=== PATIENT | male | born 1990 | race Caucasian/White ===

== ENCOUNTER 2017-03-21 14:59 | Emergency (ER) | payer OTHER ==
[~2017-03-21 14:59] MED LIST: ABILIFY5 MG PO; ALBUTEROL SULF8.5 GM IH; AMPHETAMINE SALT5 MG PO; ATARAX,VISTARIL25 MG PO; BENADRYL; BENZTROPINE MESY1 MG PO; BUSPAR15 MG PO; BUSPIRONE HCL15 MG PO; CELEXA20 MG PO; COGENTIN1 MG PO; CYMBALTA60 MG PO; FANAPT8 MG PO; GEODON40 MG PO; GEODON60 MG PO; HALDOL5 MG PO; KLONOPIN1 MG PO; LATUDA40 MG PO; LEXAPRO20 MG PO; PREDNISONE20 MG PO; SEROQUEL200 MG PO; THORAZINE50 MG; TRAZODONE HCL100 MG PO; TRAZODONE HCL300 MG PO; XANAX1 MG; ZIPRASIDONE HCL20 MG PO
== END 2017-03-21 15:16 | disposition left against medical advice (07) ==
LOC: EME 14:59
DX: Z00.8 Encounter for other general examination (principal); Z53.21 Procedure and treatment not carried out due to patient leaving prior to being seen by health care provider

== ENCOUNTER 2017-03-21 18:57 | Emergency (ER) | payer OTHER ==
[~2017-03-21] VITALS: Ht 167.6 cm; Wt 85.5 kg
[2017-03-21 22:33] LABS: EOSINOPHIL (%) 1.1 % (0-5); EOSINOPHIL COUNT 0.1 K/uL (0-0.3); HEMATOCRIT 43.1 % (38.0-50.0); IMMATURE GRANULOCYTE (%) 0.4 % (0.0-0.7); IMMATURE GRANULOCYTE COUNT 0.1 K/uL; INSTRUMENT ABS NEUTROPHIL CT 7.8 K/uL; LYMPHOCYTE COUNT 2.8 K/uL (1.0-2.8); MCH 30.5 PG (29.0-34.0); MCHC 34.8 G/DL (30.0-36.0); MCV 87.6 FL (86-99); MEAN PLAT.VOLUME 9.4 uM^3 (9.0-12.4); MONOCYTE (%) 8.8 % (3-12); MONOCYTE COUNT 1.1 K/uL (0-0.8); NEUTROPHIL (%) 65.8 % (45-76); NEUTROPHIL COUNT 7.8 K/uL (1.8-6.4); PLATELET COUNT 240 K/uL (156-360); RBC DIS.WIDTH-CV 11.5 % (11.8-14.6); RBC DIS.WIDTH-SD 37.1 % (39-53); RED BLOOD COUNT 4.92 M/uL (4.00-5.50); WHITE BLOOD COUNT 11.9 K/uL (4.1-10.2)
[2017-03-21 22:37] LABS: AMPHETAMINE NEGATIVE (500 ng/mL); BARBITURATES NEGATIVE (200 ng/mL); BENZODIAZEPINES NEGATIVE (150 ng/mL); COCAINE NEGATIVE (150 ng/mL); INTERNAL CONTROLS VALID? YES; METHADONE NEGATIVE (200 ng/mL); METHAMPHETAMINE NEGATIVE (500 ng/mL); OPIATES (MORPHINE) NEGATIVE (100 ng/mL); OXYCODONE NEGATIVE (100 ng/mL); PHENCYCLIDINE NEGATIVE (25 ng/mL); PROPOXYPHENE NEGATIVE (300 ng/mL); THC CANNABINOIDS NEGATIVE (50 ng/mL); TRICYCLIC ANTIDEPRESSANTS NEGATIVE (300 ng/mL)
[2017-03-21 22:41] LABS: CHLORIDE 108 mEq/L (99-109); POTASSIUM 3.7 mEq/L (3.7-5.4); SODIUM 141 mEq/L (136-147)
[2017-03-21 22:43] LABS: GLUCOSE 134 mg/dL (70-99)
[2017-03-21 22:44] LABS: ANION GAP 9 MEQ/L (2-14)
[2017-03-21 22:46] LABS: SERUM ETHYL ALCOHOL < 10 mg/dL
[2017-03-21 22:47] LABS: GFR ESTIMATE (CALCULATED) > 59 mL/min/
[2017-03-21 22:48] LABS: UREA NITROGEN (BUN) 16 mg/dL (9-23)
[2017-03-21 22:50] LABS: SALICYLATE < 5.0 MG/DL (15-30)
[2017-03-22 10:27] VITALS: BP 100/67
== END 2017-03-22 10:59 | disposition home or self-care (01) ==
LOC: EME 18:57
PROVIDERS: Emergency Medicine
DX: F31.5 Bipolar disorder, current episode depressed, severe, with psychotic features (principal); F60.2 Antisocial personality disorder; F17.200 Nicotine dependence, unspecified, uncomplicated
CPT/HCPCS: 80048; 85025; 90839; 99281; 99284; G0480; Q0177

== ENCOUNTER 2017-08-02 18:13 | Emergency (ER) | payer OTHER ==
[~2017-08-02] VITALS: Ht 170.2 cm; Wt 87.7 kg
[2017-08-02 18:56] LABS: HEMATOCRIT 46.9 % (38.0-50.0); MCHC 35.6 G/DL (30.0-36.0); MEAN PLAT.VOLUME 9.3 uM^3 (9.0-12.4); PLATELET COUNT 260 K/uL (156-360); RBC DIS.WIDTH-CV 11.6 % (11.8-14.6); RBC DIS.WIDTH-SD 36.7 % (39-53); RED BLOOD COUNT 5.39 M/uL (4.00-5.50); WHITE BLOOD COUNT 11.2 K/uL (4.1-10.2)
[2017-08-02 19:07] LABS: CHLORIDE 107 mEq/L (99-109); SODIUM 139 mEq/L (136-147)
[2017-08-02 19:08] LABS: GLUCOSE 114 mg/dL (70-99)
[2017-08-02 19:10] LABS: ANION GAP 10 MEQ/L (2-14)
[2017-08-02 19:11] LABS: SERUM ETHYL ALCOHOL < 10 mg/dL
[2017-08-02 19:12] LABS: GFR ESTIMATE (CALCULATED) > 59 mL/min/
[2017-08-02 19:13] LABS: UREA NITROGEN (BUN) 15 mg/dL (9-23)
[2017-08-02 20:11] LABS: AMPHETAMINE NEGATIVE (500 ng/mL); BARBITURATES NEGATIVE (200 ng/mL); BENZODIAZEPINES NEGATIVE (150 ng/mL); COCAINE NEGATIVE (150 ng/mL); INTERNAL CONTROLS VALID? YES; METHADONE NEGATIVE (200 ng/mL); METHAMPHETAMINE NEGATIVE (500 ng/mL); OPIATES (MORPHINE) NEGATIVE (100 ng/mL); OXYCODONE NEGATIVE (100 ng/mL); PHENCYCLIDINE NEGATIVE (25 ng/mL); PROPOXYPHENE NEGATIVE (300 ng/mL); THC CANNABINOIDS NEGATIVE (50 ng/mL); TRICYCLIC ANTIDEPRESSANTS NEGATIVE (300 ng/mL)
[2017-08-03] MEDS ORDERED: GEODON40 MG PO (09:53)
[2017-08-03 10:06] VITALS: BP 130/82
[2017-08-04] MEDS ORDERED: BUSPAR10 MG PO (17:34)
[2017-08-04] MEDS ORDERED: VISTARIL25 MG PO (17:35)
== END 2017-08-03 10:10 | disposition home or self-care (01) ==
LOC: EME 18:13
DX: F31.30 Bipolar disorder, current episode depressed, mild or moderate severity, unspecified (principal); R45.851 Suicidal ideations; F25.9 Schizoaffective disorder, unspecified; F90.1 Attention-deficit hyperactivity disorder, predominantly hyperactive type; F60.2 Antisocial personality disorder; F41.9 Anxiety disorder, unspecified; J45.909 Unspecified asthma, uncomplicated; F12.90 Cannabis use, unspecified, uncomplicated; Z59.0 Homelessness; F17.210 Nicotine dependence, cigarettes, uncomplicated
CPT/HCPCS: 80048; 85027; 90839; 99281; 99285; G0480

== ENCOUNTER 2017-08-04 08:27 | Inpatient (IN) | payer OTHER ==
[~2017-08-04] VITALS: Ht 172.7 cm; Wt 88.8 kg
[2017-08-04 09:32] LABS: EOSINOPHIL (%) 2.3 % (0-5); EOSINOPHIL COUNT 0.2 K/uL (0-0.3); HEMATOCRIT 45.2 % (38.0-50.0); IMMATURE GRANULOCYTE (%) 0.3 % (0.0-0.7); LYMPHOCYTE COUNT 2.4 K/uL (1.0-2.8); MCH 30.1 PG (29.0-34.0); MCHC 34.3 G/DL (30.0-36.0); MCV 87.8 FL (86-99); MEAN PLAT.VOLUME 8.9 uM^3 (9.0-12.4); MONOCYTE COUNT 0.6 K/uL (0-0.8); NEUTROPHIL (%) 67.8 % (45-76); PLATELET COUNT 227 K/uL (156-360); RBC DIS.WIDTH-CV 11.4 % (11.8-14.6); RED BLOOD COUNT 5.15 M/uL (4.00-5.50); WHITE BLOOD COUNT 10.3 K/uL (4.1-10.2)
[2017-08-04 09:41] LABS: CHLORIDE 106 mEq/L (99-109); POTASSIUM 4.3 mEq/L (3.7-5.4); SODIUM 140 mEq/L (136-147)
[2017-08-04 09:41] LABS: ADD MIUA? NO; BILIRUBIN NEGATIVE; BLOOD NEGATIVE; COLOR YELLOW ((YELLOW)); GLUCOSE (STRIP) NEGATIVE; KETONES NEGATIVE; LEUKOCYTES NEGATIVE; NITRITE NEGATIVE; PROTEIN (STRIP) NEGATIVE; UCUL ADDED? NO
[2017-08-04 09:43] LABS: GLUCOSE 104 mg/dL (70-99)
[2017-08-04 09:45] LABS: ANION GAP 9 MEQ/L (2-14); TOTAL BILIRUBIN 0.9 mg/dL (0.0-1.0)
[2017-08-04 09:46] LABS: SERUM ETHYL ALCOHOL < 10 mg/dL
[2017-08-04 09:47] LABS: GFR ESTIMATE (CALCULATED) > 59 mL/min/
[2017-08-04 09:48] LABS: ALKALINE PHOSPHATASE 56 IU/L (3-129)
[2017-08-04 09:49] LABS: UREA NITROGEN (BUN) 13 mg/dL (9-23)
[2017-08-04 09:51] LABS: SALICYLATE < 5.0 MG/DL (15-30)
[2017-08-04 09:54] LABS: AMPHETAMINE NEGATIVE (500 ng/mL); BARBITURATES NEGATIVE (200 ng/mL); BENZODIAZEPINES NEGATIVE (150 ng/mL); COCAINE NEGATIVE (150 ng/mL); METHADONE NEGATIVE (200 ng/mL); METHAMPHETAMINE NEGATIVE (500 ng/mL); OPIATES (MORPHINE) NEGATIVE (100 ng/mL); OXYCODONE NEGATIVE (100 ng/mL); PHENCYCLIDINE NEGATIVE (25 ng/mL); PROPOXYPHENE NEGATIVE (300 ng/mL); THC CANNABINOIDS NEGATIVE (50 ng/mL); TRICYCLIC ANTIDEPRESSANTS NEGATIVE (300 ng/mL)
[2017-08-04 09:55] LABS: INTERNAL CONTROLS VALID? YES
[2017-08-04] MEDS ORDERED: BUSPAR10 MG PO (17:34)
[2017-08-04] MEDS ORDERED: VISTARIL25 MG PO (17:35)
[2017-08-04 18:52] VITALS: BP 133/85
[2017-08-05 07:35] VITALS: BP 105/56
[2017-08-05 15:53] VITALS: BP 123/79
[2017-08-06 09:12] VITALS: BP 105/57
[2017-08-06 15:30] VITALS: BP 104/46
[2017-08-07] MEDS ORDERED: BUSPAR10 MG PO (09:24)
[2017-08-07] MEDS ORDERED: GEODON60 MG PO (09:24)
[2017-08-08] MEDS ORDERED: BUSPAR10 MG PO (19:30)
[2017-08-08] MEDS ORDERED: GEODON60 MG PO (19:30)
== END 2017-08-07 11:35 | disposition home or self-care (01) | DRG 885 ==
LOC: EME 08:27 → EDOF 17:12 → 1WEST 17:12 → ENRESERV 18:05 → 1WEST 18:34
PROVIDERS: Physician Assistant
DX: F31.9 Bipolar disorder, unspecified (principal); F25.0 Schizoaffective disorder, bipolar type; R45.851 Suicidal ideations; F90.9 Attention-deficit hyperactivity disorder, unspecified type; F17.200 Nicotine dependence, unspecified, uncomplicated; Z91.14 Patient's other noncompliance with medication regimen; Z59.0 Homelessness
CPT/HCPCS: 80053; 81003; 85025; 90839; 97150 GO; 97165 GO; 99281; 99285; G0480; Q0177

== ENCOUNTER 2017-08-08 17:00 | Emergency (ER) | payer OTHER ==
[~2017-08-08] VITALS: Ht 170.2 cm; Wt 85.0 kg
[~2017-08-08 17:00] MED LIST changes: +BUSPAR10 MG PO; +VISTARIL25 MG PO
[2017-08-08 18:15] LABS: HEMATOCRIT 47.2 % (38.0-50.0); MCH 30.2 PG (29.0-34.0); MCV 86.4 FL (86-99); MEAN PLAT.VOLUME 9.3 uM^3 (9.0-12.4); PLATELET COUNT 260 K/uL (156-360); RBC DIS.WIDTH-CV 11.5 % (11.8-14.6); RBC DIS.WIDTH-SD 36.2 % (39-53); RED BLOOD COUNT 5.46 M/uL (4.00-5.50); WHITE BLOOD COUNT 17.8 K/uL (4.1-10.2)
[2017-08-08 18:36] LABS: CHLORIDE 106 mEq/L (99-109); SODIUM 140 mEq/L (136-147)
[2017-08-08 18:38] LABS: GLUCOSE 99 mg/dL (70-99)
[2017-08-08 18:39] LABS: ANION GAP 11 MEQ/L (2-14)
[2017-08-08 18:41] LABS: SERUM ETHYL ALCOHOL < 10 mg/dL
[2017-08-08 18:42] LABS: GFR ESTIMATE (CALCULATED) > 59 mL/min/
[2017-08-08 18:51] LABS: UREA NITROGEN (BUN) 23 mg/dL (9-23)
[2017-08-08] MEDS ORDERED: BUSPAR10 MG PO (19:30)
[2017-08-08] MEDS ORDERED: GEODON60 MG PO (19:30)
[2017-08-08 20:18] LABS: SALICYLATE < 5.0 MG/DL (15-30)
[2017-08-08 21:44] LABS: AMPHETAMINE NEGATIVE (500 ng/mL); BARBITURATES NEGATIVE (200 ng/mL); BENZODIAZEPINES NEGATIVE (150 ng/mL); COCAINE NEGATIVE (150 ng/mL); INTERNAL CONTROLS VALID? YES; METHADONE NEGATIVE (200 ng/mL); METHAMPHETAMINE NEGATIVE (500 ng/mL); OPIATES (MORPHINE) NEGATIVE (100 ng/mL); OXYCODONE NEGATIVE (100 ng/mL); PHENCYCLIDINE NEGATIVE (25 ng/mL); PROPOXYPHENE NEGATIVE (300 ng/mL); THC CANNABINOIDS NEGATIVE (50 ng/mL); TRICYCLIC ANTIDEPRESSANTS NEGATIVE (300 ng/mL)
[2017-08-09 03:20] VITALS: BP 122/82
== END 2017-08-09 03:45 | disposition home or self-care (01) ==
LOC: EME 17:00
DX: F32.9 Major depressive disorder, single episode, unspecified (principal); R45.851 Suicidal ideations; J45.909 Unspecified asthma, uncomplicated; F41.9 Anxiety disorder, unspecified; F90.1 Attention-deficit hyperactivity disorder, predominantly hyperactive type; F60.2 Antisocial personality disorder; F17.200 Nicotine dependence, unspecified, uncomplicated
CPT/HCPCS: 80048; 85027; 90839; 94640; 99281; 99285; G0480

== ENCOUNTER 2017-10-27 18:05 | Emergency (ER) | payer OTHER ==
[~2017-10-27] VITALS: Ht 170.2 cm; Wt 83.9 kg
[2017-10-27 18:15] VITALS: BP 132/87
== END 2017-10-27 20:46 | disposition left against medical advice (07) ==
LOC: EME 18:05
DX: R45.851 Suicidal ideations (principal); R45.4 Irritability and anger; Z53.21 Procedure and treatment not carried out due to patient leaving prior to being seen by health care provider

== ENCOUNTER 2017-11-04 13:23 | Emergency (ER) | payer OTHER ==
[~2017-11-04] VITALS: Ht 170.2 cm; Wt 83.7 kg
[2017-11-04 14:49] LABS: HEMATOCRIT 42.3 % (38.0-50.0); MCH 30.5 PG (29.0-34.0); MCHC 35.5 G/DL (30.0-36.0); MCV 86.2 FL (86-99); PLATELET COUNT 181 K/uL (156-360); RBC DIS.WIDTH-CV 11.7 % (11.8-14.6); RBC DIS.WIDTH-SD 36.4 % (39-53); RED BLOOD COUNT 4.91 M/uL (4.00-5.50); WHITE BLOOD COUNT 7.9 K/uL (4.1-10.2)
[2017-11-04 15:02] LABS: ALBUMIN 4.5 g/dL (3.2-4.8); CHLORIDE 109 mEq/L (99-109); POTASSIUM 3.8 mEq/L (3.7-5.4); SODIUM 139 mEq/L (136-147)
[2017-11-04 15:05] LABS: GLUCOSE 106 mg/dL (70-99); TOTAL PROTEIN 7.2 g/dL (6.4-8.3)
[2017-11-04 15:07] LABS: TOTAL BILIRUBIN 0.4 mg/dL (0.0-1.0)
[2017-11-04 15:08] LABS: ALKALINE PHOSPHATASE 59 IU/L (3-129); CREATININE 0.8 mg/dL (0.6-1.3); GFR ESTIMATE (CALCULATED) > 59 mL/min/ (58.99-99999)
[2017-11-04 15:09] LABS: UREA NITROGEN (BUN) 13 mg/dL (9-23)
[2017-11-04 15:10] LABS: AST (GOT) 19 IU/L (2-34)
[2017-11-04 15:11] LABS: ALT (GPT) 25 IU/L (3-49)
[2017-11-04] MEDS ORDERED: ZITHROMAX250 MG PO (16:20)
[2017-11-04] MEDS ORDERED: BENTYL20 MG PO (16:20)
[2017-11-04] MEDS ORDERED: TESSALON PERLE100 MG PO (16:20)
[2017-11-04] MEDS ORDERED: ZOFRAN ODT8 MG PO (16:20)
[2017-11-04] MEDS ORDERED: TAMIFLU75 MG PO (16:20)
[2017-11-04 16:38] VITALS: BP 121/90
== END 2017-11-04 16:44 | disposition home or self-care (01) ==
LOC: EME 13:23
PROVIDERS: Physician Assistant
DX: J11.00 Influenza due to unidentified influenza virus with unspecified type of pneumonia (principal); J45.909 Unspecified asthma, uncomplicated; F31.9 Bipolar disorder, unspecified; F41.9 Anxiety disorder, unspecified; F17.200 Nicotine dependence, unspecified, uncomplicated; Z88.8 Allergy status to other drugs, medicaments and biological substances
CPT/HCPCS: 71046; 80053; 81003; 85027; 87493; 87506; 99281; 99285; J0500; J1885; J2405; J7030

== ENCOUNTER 2017-11-04 22:47 | Emergency (ER) | payer OTHER ==
[~2017-11-04] VITALS: Ht 170.2 cm; Wt 83.3 kg
[~2017-11-04 22:47] MED LIST changes: +BENTYL20 MG PO; +TAMIFLU75 MG PO; +TESSALON PERLE100 MG PO; +ZITHROMAX250 MG PO; +ZOFRAN ODT8 MG PO
[2017-11-05 01:11] VITALS: BP 133/78
== END 2017-11-05 01:12 | disposition home or self-care (01) ==
LOC: EME 22:47
DX: J11.00 Influenza due to unidentified influenza virus with unspecified type of pneumonia (principal); R11.2 Nausea with vomiting, unspecified; J45.909 Unspecified asthma, uncomplicated; F17.200 Nicotine dependence, unspecified, uncomplicated; F41.9 Anxiety disorder, unspecified; F31.9 Bipolar disorder, unspecified
CPT/HCPCS: 94640; 99281; 99283